=== PATIENT | male | born 1985 | race Caucasian/White ===

== ENCOUNTER 2018-07-31 13:47 | Emergency (ER) | payer OTHER, SELFPAY ==
[2018-07-31 13:48] VITALS: BP 144/80; PULSE 97; RESP 16; TEMP 36.8; O2SAT 99; BMI 34.0
--- NOTE | 2018-07-31 14:45 | RAD_ITS ---
STUDY: X-RAY CHEST REASON FOR EXAM: Male, 32 years old. 3 week history of intermittent chest pain. TECHNIQUE: PA and lateral views of the chest. COMPARISON: Comparison is made with prior study dated March 06, 2017. FINDINGS: EKG electrodes are seen. The lungs are clear and expanded. There is no demonstrated pleural abnormality. Normal size heart. Normal mediastinum and irena. Normal visualized pulmonary arteries. Normal visualized aortic arch and descending thoracic aorta. Normal visualized thoracic spine. Normal visualized ribs, clavicles, and shoulders. There is no demonstrated abnormality of the visualized soft tissue structures of the upper abdomen. RAD/Chest PA and Lateral IMPRESSION: Normal x-ray examination of the chest. Electronically Signed: lA Gomez MD at 15:27 EDT Tel [phone], Service support ,
--- NOTE | 2018-07-31 14:45 | EKG12_ITS ---
Test Reason : Blood Pressure : / mmHG Vent. Rate : 085 BPM Atrial Rate : 085 BPM P-R Int : 168 ms QRS Dur : 100 ms QT Int : 364 ms P-R-T Axes : 045 108 024 degrees QTc Int : 433 ms Normal sinus rhythm Rightward axis Borderline ECG Confirmed by ABBEY CRUZ ([id number]), manager editorial SHAINA MINAYA ([id number]) on 08/05/2018 8:56:58 AM Referred By: MART Confirmed By:ABBEY CRUZ
[2018-07-31 15:06] LABS: Absolute Lymphocyte Count 1.88 X10^3/ul (0.83-4.51); Absolute Neutrophil Count 8.1 X10^3/uL (2.0-7.7); Basophil# 0.02 X10^3/uL; Basophil% 0.2 % (0-1); Eosinophil# 0.18 X10^3/uL; Eosinophils% 1.6 % (0-5); Hematocrit 44.2 % (40-54); Hemoglobin 15.2 g/dl (13.0-16.5); Lymphocyte # 1.88 X10^3/ul (4.0); Lymphocyte % 17.2 % (19-41); Mean Corp Hgb Conc 34.4 g/gl (32-36); Mean Corpuscular Hgb 29.3 pg (27.0-32.0); Mean Corpuscular Volume 85.3 fL (80-94); Mean Platelet Vol. 10.1 fl (6.2-12.0); Monocyte% 7.3 % (0-10); Neutrophil # 8.06 X10^3/uL (2.7-7.7); Neutrophil % 73.5 % (47-70); Platelet Count 205 K/mm3 (150-450); RBC Distribution Width CV 12.7 % (11.6-14.6); RBC Distribution Width SD 39.6 fl (35.1-43.9); Red Blood Count 5.18 M/mm3 (4.6-6.2)
[2018-07-31 15:07] LABS: POSITIVE COUNT NO; POSITIVE DIFFERENTIAL NO; POSITIVE MORPHOLOGY NO
[2018-07-31 15:35] LABS: Anion Gap 8 (5-15); BUN 12 mg/dL (7-18); Calcium,Total 8.1 mg/dL (8.5-10.1); Chloride 100 mmol/L (98-107); Creatinine, Serum 1.09 mg/dL (0.70-1.30); EST Glomerular Filtration Rate 83 mL/min (>60); Est Glom Filt Rate - Afr Amer 100 mL/min (>60); Estimated Creatinine Clearance 100.46 ml/min; Glucose 402 mg/dL (74-106); Potassium 4.5 mmol/L (3.5-5.1); Sodium Level 134 mmol/L (136-145)
[2018-07-31 15:48] LABS: D-Dimer Quantitative (DVT/PE) < 0.27 FEU/ug/m (0.27-0.49)
[2018-07-31 16:00] VITALS: BP 108/74; PULSE 75; RESP 18; O2SAT 98
--- NOTE | 2018-07-31 16:20 | ED.VISSUMM ---
- ER Visit Summary Date of Service: 07/31/18 Chief Complaint: Chest pain History of Present Illness: The patient is a 32 M couple weeks ago he went to outside hospital and was diagnosed with costochondritis. He states that it should have resolved by now and today at around 10 AM he was lying in bed and he states the intermittent pain then became constant. Still described as stabbing and burning that characteristic has not changed. He points to the left costochondral border going laterally over the superior aspect of his pectoralis major muscle. He states when he moves his arm it does hurt and it is mildly tender to palpation. He states that he does not have any medical problems (later tells me he has diabetes and is out of his medicine) he has no doctor. Non-smoker. Physical Examination: Afebrile vital signs are stable Gen: Well-nourished well-developed Head: Normocephalic atraumatic Eyes: Perrl EOMI ENT: TMs clear no rhinorrhea moist mucous membranes Neck: Supple no lymphadenopathy no JVD nontender CVS: Regular rate rhythm no murmurs normal S1-S2 Respiratory: No distress clear to auscultation bilaterally left anterior chest is tender in the distribution that he describes. I can re-create it by stretching the pectoralis major muscle by bringing the arm posteriorly. Abdomen: Soft nontender nondistended normal bowel sounds no masses Back: Nontender Extremity: Nontender no edema Skin: Normal color no rash Neuro: alert orientated ?3 CN II-XII intact normal strength sensation reflexes gait cerebellar Psych: Normal affect normal mood Test Results: EKG shows a sinus rhythm at a rate of 85. CBC BMP troponin and d-dimer showed a glucose of 402. Chest x-ray negative. Emergency Department Course and Treatment: Patient states that he does have a history of diabetes but is not taking anything currently because he lost his insurance and does not have a doctor.. He was on metformin 1000 mg twice a day we can restart this. He needs to establish primary care to continue this medication. Patient's HEATHER score is 0. Impression: 1. Chest wall pain 2. Diabetic hyperglycemia secondary to noncompliance This note was generated with [employer] software. It may contain incorrect words, spelling, and punctuation that were not noted in review of the chart prior to signing ED Disposition - Plan for ED Patient: Disposition: Home or Assisted Living Chief Complaint: Chest Other Instructions: ED Chest Pain Costochondritis Prescriptions: Metformin HCl 1,000 mg PO BID #60 tab Referrals: Clint Mancilla MD [STAFF PHYSICIAN] - Additional Instructions: Follow-up with primary care as soon as possible.
--- NOTE | 2018-07-31 16:24 | ED.DCSUM_ITS ---
- ER Visit Summary Date of Service: 07/31/18 Chief Complaint: Chest pain History of Present Illness: The patient is a 32 M couple weeks ago he went to outside hospital and was diagnosed with costochondritis. He states that it should have resolved by now and today at around 10 AM he was lying in bed and he states the intermittent pain then became constant. Still described as stabbing and burning that characteristic has not changed. He points to the left costochondral border going laterally over the superior aspect of his pectoralis major muscle. He states when he moves his arm it does hurt and it is mildly tender to palpation. He states that he does not have any medical problems (later tells me he has diabetes and is out of his medicine) he has no doctor. Non-smoker. Physical Examination: Afebrile vital signs are stable Gen: Well-nourished well-developed Head: Normocephalic atraumatic Eyes: Perrl EOMI ENT: TMs clear no rhinorrhea moist mucous membranes Neck: Supple no lymphadenopathy no JVD nontender CVS: Regular rate rhythm no murmurs normal S1-S2 Respiratory: No distress clear to auscultation bilaterally left anterior chest is tender in the distribution that he describes. I can re-create it by stretching the pectoralis major muscle by bringing the arm posteriorly. Abdomen: Soft nontender nondistended normal bowel sounds no masses Back: Nontender Extremity: Nontender no edema Skin: Normal color no rash Neuro: alert orientated ?3 CN II-XII intact normal strength sensation reflexes gait cerebellar Psych: Normal affect normal mood Test Results: EKG shows a sinus rhythm at a rate of 85. CBC BMP troponin and d- dimer showed a glucose of 402. Chest x-ray negative. Emergency Department Course and Treatment: Patient states that he does have a history of diabetes but is not taking anything currently because he lost his insurance and does not have a doctor.. He was on metformin 1000 mg twice a day we can restart this. He needs to establish primary care to continue this medication. Patient's HEATHER score is 0. Impression: 1. Chest wall pain 2. Diabetic hyperglycemia secondary to noncompliance This note was generated with [employer] software. It may contain incorrect words, spelling, and punctuation that were not noted in review of the chart prior to signing ED Disposition - Plan for ED Patient: Disposition: Home or Assisted Living Chief Complaint: Chest Other Instructions: ED Chest Pain Costochondritis Prescriptions: Metformin HCl 1,000 mg PO BID #60 tab Referrals: Clint Mancilla MD [STAFF PHYSICIAN] - Additional Instructions: Follow-up with primary care as soon as possible.
[2018-07-31 16:30] VITALS: BP 108/79; PULSE 68; RESP 16; O2SAT 98
== END 2018-07-31 16:30 | disposition home or self-care (01) ==
PROVIDERS: Emergency Provider Emergency Medicine; Family Provider Nurse Practitioner Family; PCP Nurse Practitioner Family
DX: R07.89 Other chest pain (principal); E11.65 Type 2 diabetes mellitus with hyperglycemia; Z79.84 Long term (current) use of oral hypoglycemic drugs; Z91.14 Patient's other noncompliance with medication regimen
CPT/HCPCS: 71046; 80048; 84484; 85025; 85379; 93005; 99284; A4216

== ENCOUNTER 2019-01-26 13:59 | Emergency (ER) | payer OTHER, SELFPAY ==
[2019-01-26 14:00] VITALS: BP 131/86; PULSE 86; RESP 18; TEMP 36.3; O2SAT 99; BMI 32.5
--- NOTE | 2019-01-26 14:04 | RAD_ITS ---
STUDY: X-RAY LEFT FOOT, GREAT TOE REASON FOR EXAM: Pain and bruising of the great toe, injury. TECHNIQUE: 3 view(s) of the toe were obtained. COMPARISON: None. FINDINGS: Normal visualized metatarsus. Normal metatarsophalangeal (M.T.P) joint. Normal interphalangeal joint. Normal phalanges. There are bipartite tibial and fibular sesamoids. The soft tissue structures are unremarkable. RAD/Toe(s) Min 2 Views IMPRESSION: No demonstrated fracture of the great toe. Electronically Signed: Hector Elizabeth MD at 14:44 EDT Tel , Service support ,
--- NOTE | 2019-01-26 15:28 | ED.RN ---
PT STATES HE HAS NO PCP. HAS BEEN OFF HIS METFORMIN FOR UNKNOWN AMOUNT OF TIME. DR DERAS INFORMED AND STATED. HE NEEDS A PRIMARY TO MONITOR AND MAINTAIN MEDICATION. CASE MANAGEMENT OFFERED TO STATES PCP IS [facility]. Patti MARK RN [id number]
--- NOTE | 2019-01-26 15:36 | ED.VISSUMM ---
- ER Visit Summary Date of Service: 01/26/19 Chief Complaint: Left great toe blister History of Present Illness: The patient is a 33 M nontraumatic left great toe blister initially 2 days ago. They have noticed some blood underneath. New boots worn a week ago for work. On his feet. Reports side and bumped his toe with his arm yesterday causing increased pain. No fevers. No drainage. History of diabetes supposed be on metformin, reports no PCP. Physical Examination: General: Alert and oriented ?3, no acute distress HEENT: Normocephalic, atraumatic. Moist mucosa membranes Neck: supple, nontender. Cardiovascular: Regular rate and rhythm, no murmurs Respiratory: Normal breath sounds, symmetric, no distress Abdomen: Soft, nontender, nondistended Extremities: Left lower extremity: Foot noted 2 cm blister radial aspect distal phalanx. No nailbed involvement. There was blood underneath, no active drainage. No streaking. No deformities. Skin intact. Neuro: no focal neurological deficits. Test Results: Blood glucose 364 Emergency Department Course and Treatment: Exam concerns for hemorrhagic blister with his recent new boots. Discussed extra padding with additional sock. Use Tylenol as needed. Is refilled for his metformin for his diabetes. There is no signs of infection. He is given follow-up as an outpatient with PCP. Treatment Plan: [] Disposition: discharge Impression: 1. Hemorrhagic blister left great toe 2. Elevated blood glucose history diabetes This note was generated with [employer] dictation software. It may contain incorrect words, spelling, and punctuation that were not noted in review of the chart prior to signing ED Disposition - Plan for ED Patient: Disposition: Home or Assisted Living Diagnosis: hemorraghic blister left toe, Blood glucose elevated Instructions: ED Blister Prescriptions: Metformin HCl 1,000 mg PO BID #60 tablet Referrals: Care Physician,No Primary [Primary Care Provider] - Job Manriquez MD [STAFF PHYSICIAN] - 3-5 Days
[2019-01-26 15:46] LABS: Bedside Glucose 364 mg/dL (70-110)
[2019-01-26 16:06] VITALS: RESP 181
== END 2019-01-26 16:06 | disposition home or self-care (01) ==
PROVIDERS: Emergency Provider Emergency Medicine
DX: S90.422A Blister (nonthermal), left great toe, initial encounter (principal); X58.XXXA Exposure to other specified factors, initial encounter; Y93.9 Activity, unspecified; Y92.9 Unspecified place or not applicable; Y99.9 Unspecified external cause status; E11.65 Type 2 diabetes mellitus with hyperglycemia
CPT/HCPCS: 73660; 82962; 99282

== ENCOUNTER 2019-02-10 22:55 | Emergency (ER) | payer OTHER, SELFPAY ==
[2019-02-10 22:56] VITALS: BP 139/91; PULSE 96; RESP 18; TEMP 36.6; O2SAT 99; BMI 32.5
--- NOTE | 2019-02-10 23:33 | ED.VISSUMM ---
- ER Visit Summary Date of Service: 02/10/19 Chief Complaint: Left great toe wound History of Present Illness: The patient is a 33 M history of [id number] diabetes takes metformin. Patient did not check his blood sugars and does not currently have a glucometer. Patient developed a blood blister on his left great toe about 2 weeks ago. Was evaluated that time. He states that today he basically had flash come off of the wound. He denies any fever, redness, streaks or pus. Physical Examination: Well-appearing young male. Vital signs are stable. Afebrile. No distress. H EENT exam unremarkable. Neck nontender no lymphadenopathy. Lungs clear to auscultation bilaterally. Heart regular rhythm no murmur. Abdomen soft nontender. Extremities moves all 4. Neurovascular intact. Left foot he has nailbed changes. Normal DP pulse. There is a wound about the size of a dime on the medial aspect of left great toe. No pus. No discharge. No cellulitis. No streaks. No bony deformity. No current signs of infection. I am unable to express any fluid. Nor is it fluctuant. It is not warm to touch. Joints are nontender and nonswollen. Neurologically is awake and alert. Test Results: BGT equals 418. I discussed with patient that he does not have a glucometer and he has not taken his metformin the last 2 days. I explained to him he has he has blood sugar is under control. Emergency Department Course and Treatment: Wound to be cleaned and dressed by nursing. Patient I discussed the need to check his blood sugars. I wrote him for a glucometer. Treatment Plan: Wound care. Antibiotic ointment. Watch for any signs of infection. Follow-up with podiatry. Disposition: Discharge Impression: Left great toe wound Poorly controlled diabetes This note was generated with [employer] software. It may contain incorrect words, spelling, and punctuation that were not noted in review of the chart prior to signing ED Disposition - Plan for ED Patient: Disposition: Home or Assisted Living Instructions: Wound Care, ED Hyperglycemia Diabetic Referrals: Du Bravo MD [STAFF PHYSICIAN] - As soon as possible Additional Instructions: Keep the left great toe wound clean. Apply antibiotic ointment daily. Watch for any signs of infection such as fever, pus, redness or streaks. Follow-up with a local installation technician either Dr. Ahumada or Dr. Neumann for wound care of your left great toe. Get a glucometer to watch her blood sugars closely. Follow-up with a local primary care physician for diabetic management and to have a physician.
--- NOTE | 2019-02-10 23:36 | ED.DCSUM_ITS ---
- ER Visit Summary Date of Service: 02/10/19 Chief Complaint: Left great toe wound History of Present Illness: The patient is a 33 M history of [id number] diabetes takes metformin. Patient did not check his blood sugars and does not currently have a glucometer. Patient developed a blood blister on his left great toe about 2 weeks ago. Was evaluated that time. He states that today he basically had flash come off of the wound. He denies any fever, redness, streaks or pus. Physical Examination: Well-appearing young male. Vital signs are stable. Afebrile. No distress. H EENT exam unremarkable. Neck nontender no lymphadenopathy. Lungs clear to auscultation bilaterally. Heart regular rhythm no murmur. Abdomen soft nontender. Extremities moves all 4. Neurovascular intact. Left foot he has nailbed changes. Normal DP pulse. There is a wound about the size of a dime on the medial aspect of left great toe. No pus. No discharge. No cellulitis. No streaks. No bony deformity. No current signs of infection. I am unable to express any fluid. Nor is it fluctuant. It is not warm to touch. Joints are nontender and nonswollen. Neurologically is awake and alert. Test Results: BGT equals 418. I discussed with patient that he does not have a glucometer and he has not taken his metformin the last 2 days. I explained to him he has he has blood sugar is under control. Emergency Department Course and Treatment: Wound to be cleaned and dressed by nursing. Patient I discussed the need to check his blood sugars. I wrote him for a glucometer. Treatment Plan: Wound care. Antibiotic ointment. Watch for any signs of infection. Follow-up with podiatry. Disposition: Discharge Impression: Left great toe wound Poorly controlled diabetes This note was generated with [employer] software. It may contain incorrect words, spelling, and punctuation that were not noted in review of the chart prior to signing ED Disposition - Plan for ED Patient: Disposition: Home or Assisted Living Instructions: Wound Care, ED Hyperglycemia Diabetic Referrals: Du Bravo MD [STAFF PHYSICIAN] - As soon as possible Additional Instructions: Keep the left great toe wound clean. Apply antibiotic ointment daily. Watch for any signs of infection such as fever, pus, redness or streaks. Follow-up with a local business consultant either Dr. Ahumada or Dr. Neumann for wound care of your left great toe. Get a glucometer to watch her blood sugars closely. Follow-up with a local primary care physician for diabetic management and to have a physician.
[2019-02-10 23:51] LABS: Bedside Glucose 418 mg/dL (70-110)
== END 2019-02-11 00:07 | disposition home or self-care (01) ==
LOC: ED 02-11 00:03
PROVIDERS: Emergency Provider Emergency Medicine
DX: S91.102A Unspecified open wound of left great toe without damage to nail, initial encounter (principal); X58.XXXA Exposure to other specified factors, initial encounter; Y93.9 Activity, unspecified; Y92.9 Unspecified place or not applicable; Y99.9 Unspecified external cause status; E11.65 Type 2 diabetes mellitus with hyperglycemia; Z79.84 Long term (current) use of oral hypoglycemic drugs
CPT/HCPCS: 82962; 99282

== ENCOUNTER 2019-12-02 12:38 | Emergency (ER) | payer MEDICAID, SELFPAY ==
[2019-12-02 12:39] VITALS: BP 120/72; PULSE 99; RESP 16; TEMP 36.7; O2SAT 100; BMI 32.9
[2019-12-02] MEDS: Acetaminophen 500 MG Tablet 1000 MG PO (14:24)
[2019-12-02] MEDS: Ibuprofen 600 MG Tablet PO (14:24)
[2019-12-02 14:26] VITALS: RESP 14
[2019-12-02 14:46] LABS: Bacteria 0 SEEN /hpf (None Seen); Mucous, Urine 0 SEEN /hpf (<or=2+); Red Blood Cells-Urine 0 SEEN /hpf (0-5); Squamous Epithelial Cells - UA 0 SEEN /hpf (0-5); White Blood Cells 0 SEEN /hpf (0-5)
[2019-12-02 14:48] LABS: Color, Urine Yellow (Yellow); Glucose, Dipstick 1000 mg/dl (Normal); Ketone-Dipstick Negative (Negative); Leukocyte Esterase-Dipstick Negative /ul (Negative); Nitrite-Dipstick Negative (Negative); Occult Blood-Urine Negative /ul (Negative); Protein-Dipstick Negative (Negative); Urine Bilirubin Dipstick Negative (Negative); Urine Clarity Clear (Clear); Urine Urobilinogen Normal (Normal)
--- NOTE | 2019-12-02 15:48 | ED.VIS.BACK ---
History of Present Illness Chief Complaint: Back Informant: Patient Onset: Yesterday Narrative: Patient is a 34-year-old male with history of low back pain presenting with left flank pain. Patient states started last night. The pain is intermittent. He notes he has not had any improvement with ibuprofen. He has not had any since last night. Patient does have a physical job and does a lot of bending and lifting. Denies any radiation of the pain. He denies any numbness or weakness of his groin region or his legs. He denies any bowel or bladder incontinence. He does have a history of diabetes mellitus type 2 but is been off his medications for some time secondary to not having insurance. He denies any other complaints at this time. Past Medical History - Allergies and Home Meds Allergies/Adverse Reactions: Allergies No Known Allergies Allergy (Verified 12/02/19 12:42) Primary Care Physician: Care Physician,No Primary [Primary Care Provider] - Past Medical History: - - Diabetes mellitus, low back pain Surgical History: noncontributory Smoking Status: Never smoker Review of Systems General: Denies: Chills, Fever, Sweats Eyes: Denies: Visual changes - bilaterally, Diplopia ENT: Denies: Rhinorrhea, Sore throat Cardiovascular: Denies: Chest pain, Palpitations Respiratory: Denies: Dyspnea, Cough, Dyspnea on exertion Gastrointestinal: Denies: Abdominal pain, Nausea, Vomiting, Diarrhea, Melena, Hematochezia Genitourinary: Denies: Dysuria, Hematuria, Frequency Musculoskeletal: Reports: Back pain - Left mid back. Denies: Extremity Pain Skin: Denies: Rash, Wounds Neurological: Denies: Headache, Weakness, Parasthesia, Numbness Physical Exam Vital Signs/Narrative: Vital Signs Temp Pulse Resp BP Pulse Ox 12/02/19 14:26 14 12/02/19 12:39 98.0 F 99 16 120/72 100 Inital Vital Signs reviewed: Yes General: Well nourished, Well developed Head: Normocephalic, Atraumatic Eyes: Perrl, EOMI ENT: Moist mucous membranes, No rhinorrhea Neck: Supple, Nontender Cardiovascular: Regular rate, Regular rhythm, No murmurs Respiratory: No distress, CTA bilaterally, Chest nontender Abdomen: Soft, Nontender, Nondistended, Normal bowel sounds Back: Normal Inspection, Paraspinal Tenderness - Left lateral thoracic back, reproducible over the posterior ribs with palpation, no overlying rash. Negative for: Spinal tenderness, CVA tenderness Extremeties: Nontender, No edema Skin: Normal color, No rash Neuro: Alert, Oriented, Normal Strength, Normal Sensation, Normal DTR, Normal Gait Psychological: Normal affect Diagnostic/Tx/Re-eval Laboratory Data 12/02/19 12/02/19 14:35 15:51 Urine Color Yellow Urine Clarity Clear Urine pH 6.0 Ur Specific [place] 1.010 Urine Protein Negative Urine Glucose (UA) 1000 H Urine Ketones Negative Urine Occult Blood Negative Urine Nitrite Negative Urine Bilirubin Negative Urine Urobilinogen Normal Ur Leukocyte Esterase Negative Urine RBC 0 SEEN Urine WBC 0 SEEN Ur Squamous Epith Cells 0 SEEN Urine Bacteria 0 SEEN Urine Mucus 0 SEEN POC Glucose 387 H - Medical Decision Making Patient is atraumatic left back pain. Appears to be musculoskeletal is reproducible with palpation of his lateral/posterior lower ribs. Patient not have CVA tenderness. He is not having signs or symptoms consistent with cauda equina syndrome. Urinalysis obtained which does not show signs of infection or any blood/white blood cells. I do not suspect a kidney stone based on his history or physical exam. He does have 1000 glucose in his urine patient comments that he used to be on 1000 mg of metformin twice a day but is been off that for couple years. Fingerstick blood glucose is checked and it is elevated at 367. Patient is hemodynamically stable I do not think he is in HH NK or DKA based on his presentation. Likely he just has untreated diabetes. He will be restarted on metformin. He will be restarted on 500 mg twice a day. Patient is counseled that for the first week he should take it once a day until he gets used to it again to prevent diarrhea. Patient will be referred to PCP for outpatient follow-up. He is given a Lidoderm patch as well as Tylenol and Motrin for his back pain. He will be given a short course of Flexeril as well as a work note for today and tomorrow. Patient is counseled on signs and symptoms requiring return to the emergency room. Patient verbalizes agreement and understand this plan. Patient discharged home in stable and improved condition. ED Disposition - Plan for ED Patient: Disposition: Home or Assisted Living Diagnosis: Left-sided back pain, Hyperglycemia Instructions: BACK SPASM, No Trauma Prescriptions: cycloBENZAPRine HCl [Flexeril] 10 mg PO TID PRN PRN #15 tab PRN Reason: Muscle Spasm Prescription Printed Metformin HCl 500 mg PO BID #60 tab Transmission Status: Pending to [id number] Referrals: eGri Hand MD [STAFF PHYSICIAN] - Additional Instructions: Likely this is a muscle strain in your back. Your urine does not look like an infected or like there is a kidney stone. Your blood sugar is elevated. You need to be restarted on your metformin. It is very important that you follow-up with a primary care doctor for further treatment and evaluation of this. Return the emergency room with any worsening symptoms. Drink plenty of fluids. Take Tylenol as needed for your back pain
[2019-12-02 15:56] LABS: Bedside Glucose 387 mg/dL (70-110)
[2019-12-02 16:47] VITALS: BP 114/80; PULSE 81; RESP 17; O2SAT 97
[2019-12-02] MEDS: Lidocaine 5% Patch 1 PATCH TOPICAL (16:54)
== END 2019-12-02 16:55 | disposition home or self-care (01) ==
PROVIDERS: Emergency Provider Emergency Medicine
DX: M54.5 Low back pain (principal); E11.65 Type 2 diabetes mellitus with hyperglycemia; T38.3X6A Underdosing of insulin and oral hypoglycemic [antidiabetic] drugs, initial encounter; Z91.120 Patient's intentional underdosing of medication regimen due to financial hardship; Y92.9 Unspecified place or not applicable
CPT/HCPCS: 81001; 82962; 99283